=== PATIENT | female | born 1940 | race Caucasian/White ===

== ENCOUNTER → 2016-10-03 | Outpatient (CLI) | payer MEDICARE, BC ==
[2016-10-03 08:10] LABS: ALT 43 U/L (9-52); AST 30 U/L (14-36); Cholesterol 153 mg/dL (<200); HDL Cholesterol 57 mg/dL (40-60); Triglycerides 115 mg/dL (<150)
== END | disposition home or self-care (01) ==
LOC: LABWHC1 07:20
PROVIDERS: ATTEND Internal Medicine Interventional Cardiology
DX: E78.2 Mixed hyperlipidemia (principal)
CPT/HCPCS: 36415; 80061; 84450; 84460

== ENCOUNTER → 2017-03-23 | Outpatient (CLI) | payer MEDICARE, BC ==
[2017-03-23 14:40] LABS: ALT 53 U/L (9-52); AST 32 U/L (14-36); Alkaline Phosphatase 87 U/L (38-126); Anion Gap 8 mmol/L; Blood Urea Nitrogen 14 mg/dL (7-17); Calcium 9.2 mg/dL (8.4-10.2); Carbon Dioxide 30 mmol/L (22-30); Chloride 104 mmol/L (98-107); Cholesterol 145 mg/dL (<200); Glucose 103 mg/dL (74-99); HDL Cholesterol 63 mg/dL (40-60); Non-African American GFR(MDRD) 56 (>60 ml/min/1.73 sqM); Potassium 3.9 mmol/L (3.5-5.1); Sodium 142 mmol/L (137-145); Total Bilirubin 0.8 mg/dL (0.2-1.3); Total Protein 7.1 g/dL (6.3-8.2)
== END | disposition home or self-care (01) ==
LOC: LABWHC1 12:21
PROVIDERS: ATTEND Internal Medicine Interventional Cardiology
DX: E78.2 Mixed hyperlipidemia (principal); I10 Essential (primary) hypertension
CPT/HCPCS: 36415; 80053; 80061

== ENCOUNTER → 2017-06-30 | Outpatient (CLI) | payer MEDICARE, BC ==
--- NOTE | 2017-07-06 14:15 | MM ---
Reason for exam: screening (asymptomatic). Last mammogram was performed 1 year and 1 month ago. History: Patient is postmenopausal and is nulliparous. Family history of breast cancer in maternal cousin. Physical Findings: A clinical breast exam by your physician is recommended on an annual basis and results should be correlated with mammographic findings. MG 3D Screening Mammo W/Cad Bilateral CC and MLO view(s) were taken. Prior study comparison: June 14, 2016, bilateral MG screening mammo w CAD. June 12, 2015, bilateral MG screening mammo w CAD. The breast tissue is heterogeneously dense. This may lower the sensitivity of mammography. No significant changes when compared with prior studies. ASSESSMENT: Benign, BI-RAD 2 RECOMMENDATION: Routine screening mammogram of both breasts in 1 year.
== END | disposition home or self-care (01) ==
LOC: RADMAMWWP 14:40
PROVIDERS: ATTEND Internal Medicine
DX: Z12.31 Encounter for screening mammogram for malignant neoplasm of breast (principal)
CPT/HCPCS: 77063; G0202

== ENCOUNTER → 2017-09-22 | Outpatient (CLI) | payer MEDICARE, BC ==
[2017-09-22 10:37] LABS: ALT 52 U/L (9-52); AST 36 U/L (14-36); Cholesterol 149 mg/dL (<200); Creatine Kinase 76 U/L (30-135); HDL Cholesterol 57 mg/dL (40-60); LDL Cholesterol,Calculated 72 mg/dL (0-99); Triglycerides 100 mg/dL (<150)
== END | disposition home or self-care (01) ==
LOC: LABWHC1 09:53
PROVIDERS: ATTEND Internal Medicine Interventional Cardiology
DX: E78.2 Mixed hyperlipidemia (principal)
CPT/HCPCS: 36415; 80061; 82550; 84450; 84460

== ENCOUNTER → 2018-04-11 | Outpatient (CLI) | payer MEDICARE, BC ==
[2018-04-11 11:02] LABS: Albumin 3.8 g/dL (3.5-5.0); Calcium 9.4 mg/dL (8.4-10.2); Total Bilirubin 0.9 mg/dL (0.2-1.3)
== END ==
LOC: LABWHC1 09:21
PROVIDERS: ATTEND Internal Medicine Interventional Cardiology
DX: E78.2 Mixed hyperlipidemia (principal)
CPT/HCPCS: 36415; 80053; 80061

== ENCOUNTER → 2018-08-02 | Outpatient (CLI) | payer MEDICARE, BC ==
--- NOTE | 2018-08-05 12:49 | MM ---
Reason for exam: screening (asymptomatic). Last mammogram was performed 1 year and 1 month ago. History: Patient is postmenopausal and is nulliparous. Family history of breast cancer in maternal cousin. MG Screening Mammo w CAD Bilateral CC and MLO view(s) were taken. Prior study comparison: July 01, 2017, bilateral MG 3d screening mammo w/cad. June 14, 2016, bilateral MG screening mammo w CAD. The breast tissue is heterogeneously dense. This may lower the sensitivity of mammography. No discrete abnormality No significant changes when compared with prior studies. ASSESSMENT: Negative, BI-RAD 1 RECOMMENDATION: Routine screening mammogram of both breasts in 1 year.
== END | disposition home or self-care (01) ==
LOC: RADMAMWWP 14:24
PROVIDERS: ATTEND Internal Medicine
DX: Z12.31 Encounter for screening mammogram for malignant neoplasm of breast (principal); Z80.3 Family history of malignant neoplasm of breast
CPT/HCPCS: 77067

== ENCOUNTER → 2018-11-22 | Outpatient (CLI) | payer MEDICARE, BC ==
[2018-11-22 16:37] LABS: Albumin 4.1 g/dL (3.80-4.90); Albumin/Globulin Ratio 1.78 (1.60-3.17); Anion Gap 5.8 mmol/L (4.00-12.00); Carbon Dioxide 29.2 mmol/L (21.6-31.8); Globulin 2.3 g/dL (1.6-3.3); LDL Cholesterol,Calculated 62.4 mg/dL (0.0-131.0); Potassium 3.8 mmol/L (3.5-5.5); Total Bilirubin 1.1 mg/dL (0.3-1.2); Total Protein 6.4 g/dL (6.2-8.2); VLDL Calculation 19.6 mg/dL (5.00-40.00)
== END | disposition home or self-care (01) ==
LOC: LABWHC1 08:14
PROVIDERS: ATTEND Internal Medicine Interventional Cardiology
DX: E78.2 Mixed hyperlipidemia (principal)
CPT/HCPCS: 36415; 80053; 80061

== ENCOUNTER 2018-12-13 12:17 | Emergency (ER) | payer MEDICARE, BC ==
[2018-12-13 12:26] VITALS: BP 174/102; PULSE 98; RESP 18; TEMP 98
--- NOTE | 2018-12-13 13:43 | ED ---
General Adult HPI - General Chief complaint: Neck Pain/Injury Stated complaint: Shoulder and neck pain Time Seen by Provider: 12/13/18 12:35 Source: patient Mode of arrival: ambulatory Limitations: no limitations - History of Present Illness Initial comments: Patient is a 78-year-old female complaining of left upper trap pain times this morning and one episode of pain that radiated down her left arm. She states she woke up this morning with the pain, but no longer has the pain. States the episode of pain that went down her left arm was very brief and only lasted about 2-3 seconds. She was talking with one of her friends who states that she should come in to make sure it was not her heart. Patient denies history of heart disease. Admits to regular checkups with her PCP. Patient denies chest pain, shortness of breath, cough, nausea, vomiting, heartburn, radicular pain at this time. - Related Data Home Medications Medication Instructions Recorded Confirmed Aspirin 650 mg PO DAILY 01/23/15 01/27/15 Cetirizine HCl [Zyrtec] 10 mg PO DAILY 01/23/15 01/27/15 Losartan/Hydrochlorothiazide 1 each PO DAILY 01/23/15 01/27/15 [Losartan-Hctz 50-12.5 mg Tab] Naproxen Sodium [Aleve] 220 mg PO Q12HR PRN 01/23/15 01/27/15 Simvastatin [Zocor] 20 mg PO HS 01/23/15 01/27/15 Previous Rx's Medication Instructions Recorded Aspirin 325 mg PO BID 30 Days tab 01/28/15 Hydrocodone/Acetaminophen [[place] 1 - 2 each PO Q6HR PRN #60 tab 01/28/15 5-325] Allergies Allergy/AdvReac Type Severity Reaction Status Date / Time No Known Allergies Allergy Verified 12/13/18 12:26 Review of Systems ROS Statement: Those systems with pertinent positive or pertinent negative responses have been documented in the HPI. ROS Other: All systems not noted in ROS Statement are negative. Past Medical History Past Medical History: Hypertension, Myocardial Infarction (DC) Additional Past Medical History / Comment(s): previous EKG showed DC-not sure of date, using walker-injured left knee 01/22/15 Last Myocardial Infarction Date:: unknown History of Any Multi-Drug Resistant Organisms: None Reported Past Surgical History: Orthopedic Surgery Additional Past Surgical History / Comment(s): ORIF left ankle, D&C Past Anesthesia/Blood Transfusion Reactions: No Reported Reaction Past Psychological History: No Psychological Hx Reported Smoking Status: Never smoker Past Alcohol Use History: Occasional Past Drug Use History: None Reported - Past Family History Mother Family Medical History: No Reported History General Exam - General Exam Comments Initial Comments: GENERAL: Well-appearing, well-nourished and in no acute distress. HEAD: Atraumatic, normocephalic. EYES: Pupils equal round and reactive to light, extraocular movements intact, sclera anicteric, conjunctiva are normal. ENT: TMs normal, nares patent, oropharynx clear without exudates. Moist mucous membranes. NECK: Normal range of motion, supple without lymphadenopathy or JVD. LUNGS: Breath sounds clear to auscultation bilaterally and equal. No wheezes rales or rhonchi. HEART: Regular rate and rhythm without murmurs, rubs or gallops. ABDOMEN: Soft, nontender, normoactive bowel sounds. No guarding, no rebound. No masses appreciated. : Deferred EXTREMITIES: Normal range of motion, no pitting or edema. No clubbing or cyanosis. Pain with palpation over the left upper trap with muscle spasm present. NEUROLOGICAL: Cranial nerves II through XII grossly intact. Normal speech, normal gait. PSYCH: Normal mood, normal affect. SKIN: Warm, Dry, normal turgor, no rashes or lesions noted. Limitations: no limitations Course Vital Signs 12/13/18 12:21 Temperature 98.0 F Pulse Rate 98 Respiratory 18 Rate Blood Pressure 174/102 O2 Sat by Pulse 99 Oximetry EKG Findings - EKG Comments: EKG Findings:: Normal sinus rhythm, 82 ventricular rate, IN interval 200, QTC 450. Medical Decision Making - Medical Decision Making Patient is a 78-year-old female complaining of left upper trap pain times this morning and one brief episode of pain down the left arm. States she spoke with one of her friends about her symptoms and urged her to come in to make sure it was not her heart. She denies having any symptoms at this time. Patient denies any associated chest pain, vomiting, nausea, shortness of breath. EKG reveals nonspecific T-wave inversions in leads 1 and 2, otherwise normal EKG and similar to one in 2015. Case discussed with Dr. renteria. Patient educated on upper trapezius spasms and cervical radiculopathy. Patient discharged home. Disposition Clinical Impression: Cervical radiculopathy, Strain of neck muscle Disposition: HOME SELF-CARE Condition: Stable Instructions (If sedation given, give patient instructions): Cervical Strain (ED), Cervical Radiculopathy (ED) Additional Instructions: Please return to the Emergency Department if symptoms worsen or any other concerns. Use heat and massage to the area. Is patient prescribed a controlled substance at d/c from ED?: No Referrals: Donovan Castro MD [Primary Care Provider] - 1-2 days
== END 2018-12-13 13:45 | disposition home or self-care (01) ==
LOC: EC 12:17
DX: S16.1XXA Strain of muscle, fascia and tendon at neck level, initial encounter (principal); M54.12 Radiculopathy, cervical region; R94.31 Abnormal electrocardiogram [ECG] [EKG]; I10 Essential (primary) hypertension; I25.2 Old myocardial infarction; Z79.82 Long term (current) use of aspirin; Z79.899 Other long term (current) drug therapy
CPT/HCPCS: 93005; 99283

== ENCOUNTER → 2019-05-27 | Outpatient (CLI) | payer MEDICARE, BC ==
[2019-05-27 18:54] LABS: Chol/HDL Ratio 3.2
== END | disposition home or self-care (01) ==
LOC: LABWHC1 13:19
PROVIDERS: ATTEND Internal Medicine Interventional Cardiology
DX: E78.2 Mixed hyperlipidemia (principal)
CPT/HCPCS: 36415; 80061; 84450; 84460

== ENCOUNTER → 2019-08-22 | Outpatient (CLI) | payer MEDICARE, BC ==
--- NOTE | 2019-08-26 08:59 | MM ---
Reason for exam: screening (asymptomatic). Last mammogram was performed 1 year and 1 month ago. History: Patient is postmenopausal and is nulliparous. Family history of breast cancer in maternal cousin. Physical Findings: A clinical breast exam by your physician is recommended on an annual basis and results should be correlated with mammographic findings. MG Screening Mammo w CAD Bilateral CC and MLO view(s) were taken. Prior study comparison: August 02, 2018, bilateral MG screening mammo w CAD. July 01, 2017, bilateral MG 3d screening mammo w/cad. The breast tissue is heterogeneously dense. This may lower the sensitivity of mammography. No significant changes when compared with prior studies. ASSESSMENT: Benign, BI-RAD 2 RECOMMENDATION: Routine screening mammogram of both breasts in 1 year.
== END | disposition home or self-care (01) ==
LOC: RADMAMWWP 13:09
PROVIDERS: ATTEND Internal Medicine
DX: Z12.31 Encounter for screening mammogram for malignant neoplasm of breast (principal)
CPT/HCPCS: 77067

== ENCOUNTER → 2020-01-07 | Outpatient (CLI) | payer MEDICARE, BC ==
[2020-01-07 18:35] LABS: African American GFR (CKD) 61.2 (60.0-200.0); Albumin 4.1 g/dL (3.80-4.90); Albumin/Globulin Ratio 1.58 (1.60-3.17); Anion Gap 9.5 mmol/L (4.00-12.00); Calcium 8.9 mg/dL (8.7-10.3); Carbon Dioxide 26.5 mmol/L (21.6-31.8); Chol/HDL Ratio 2.65; Globulin 2.6 g/dL (1.6-3.3); LDL Cholesterol,Calculated 63.6 mg/dL (0.0-131.0); Non-African American GFR(CKD) 52.8 (60.0-200.0); Potassium 3.4 mmol/L (3.5-5.5); Total Bilirubin 0.8 mg/dL (0.3-1.2); Total Protein 6.7 g/dL (6.2-8.2); VLDL Calculation 15.4 mg/dL (5.00-40.00)
== END | disposition home or self-care (01) ==
LOC: LABWHC1 08:31
PROVIDERS: ATTEND Internal Medicine Interventional Cardiology
DX: E78.2 Mixed hyperlipidemia (principal)
CPT/HCPCS: 36415; 80053; 80061

== ENCOUNTER → 2020-07-20 | Outpatient (CLI) | payer MEDICARE, BC ==
[2020-07-20 15:44] LABS: African American GFR (CKD) 61.2 (60.0-200.0); Albumin 4.3 g/dL (3.80-4.90); Albumin/Globulin Ratio 1.65 (1.60-3.17); Anion Gap 7.7 mmol/L (4.00-12.00); Calcium 9.4 mg/dL (8.7-10.3); Carbon Dioxide 31.3 mmol/L (21.6-31.8); Chol/HDL Ratio 2.91; Globulin 2.6 g/dL (1.6-3.3); LDL Cholesterol,Calculated 70.2 mg/dL (0.0-131.0); Non-African American GFR(CKD) 52.8 (60.0-200.0); Potassium 3.9 mmol/L (3.5-5.5); Total Bilirubin 0.8 mg/dL (0.2-1.2); Total Protein 6.9 g/dL (6.2-8.2); VLDL Calculation 19.8 mg/dL (5.00-40.00)
== END | disposition home or self-care (01) ==
LOC: LABWHC1 09:58
PROVIDERS: ATTEND Internal Medicine Interventional Cardiology
DX: E78.2 Mixed hyperlipidemia (principal)
CPT/HCPCS: 36415; 80053; 80061

== ENCOUNTER → 2021-01-26 | Outpatient (CLI) | payer MEDICARE, BC ==
[2021-01-26 19:47] LABS: Albumin 4.2 g/dL (3.80-4.90); Albumin/Globulin Ratio 1.62 (1.60-3.17); Anion Gap 6.3 mmol/L (4.00-12.00); BUN/Creat Ratio 17.78 Ratio (12.00-20.00); Calcium 9.4 mg/dL (8.7-10.3); Carbon Dioxide 26.7 mmol/L (21.6-31.8); Chol/HDL Ratio 3.07; Globulin 2.6 g/dL (1.6-3.3); Non-African American GFR(CKD) 59.5 (60.0-200.0); Potassium 4.1 mmol/L (3.5-5.5); Total Protein 6.8 g/dL (6.2-8.2)
== END | disposition home or self-care (01) ==
LOC: LABWHC1 08:22
PROVIDERS: ATTEND Internal Medicine Interventional Cardiology
DX: E78.2 Mixed hyperlipidemia (principal)
CPT/HCPCS: 36415; 80053; 80061

== ENCOUNTER → 2021-06-15 | Outpatient (CLI) | payer MEDICARE, BC ==
[2021-06-15 10:58] LABS: Basophils # (A) 0.06 X 10*3/uL (0.00-0.10); Basophils % (A) 1.1 %; Eosinophils # (A) 0.23 X 10*3/uL (0.04-0.35); Eosinophils % (A) 4.2 %; HGB 15.4 g/dL (12.0-15.0); Lymphocytes # (A) 2.05 X 10*3/uL (0.90-5.00); Lymphocytes % (A) 37.5 %; MCH 28.7 pg (27.0-32.0); MCHC 32.1 g/dL (32.0-37.0); MCV 89.4 fL (80.0-97.0); Mean Platelet Volume 10.6 fL (9.5-12.2); Monocytes # (A) 0.58 X 10*3/uL (0.20-1.00); Monocytes % (A) 10.6 %; Neutrophils # (A) 2.54 X 10*3/uL (1.80-7.70); Neutrophils % (A) 46.4 %; Platelet Count 217 X 10*3/uL (140-440); RBC 5.37 X 10*6/uL (4.10-5.20); RDW 13.1 % (11.5-14.5); WBC 5.47 X 10*3/uL (4.50-10.00)
[2021-06-15 12:21] LABS: ALT 42 U/L (8-44); AST 31 U/L (13-35); African American GFR (CKD) 60.8 (60.0-200.0); Albumin 4.2 g/dL (3.8-4.9); Alkaline Phosphatase 85 U/L (41-126); Blood Urea Nitrogen 14.3 mg/dL (9.0-27.0); Calcium 9.2 mg/dL (8.7-10.3); Carbon Dioxide 25.7 mmol/L (20.0-27.5); Chloride 106 mmol/L (96-109); Chol/HDL Ratio 2.75 Ratio; Globulin 2.8 g/dL (1.6-3.3); Glucose 119 mg/dL (70-110); LDL Cholesterol,Calculated 62.7 mg/dL (0.0-131.0); Non-African American GFR(CKD) 52.4 (60.0-200.0); Potassium 3.8 mmol/L (3.5-5.5); Sodium 144 mmol/L (135-145)
== END | disposition home or self-care (01) ==
LOC: LABWHC1 07:13
PROVIDERS: ATTEND Internal Medicine Geriatric Medicine
DX: I25.10 Atherosclerotic heart disease of native coronary artery without angina pectoris (principal); E78.2 Mixed hyperlipidemia; R73.9 Hyperglycemia, unspecified; I49.9 Cardiac arrhythmia, unspecified
CPT/HCPCS: 36415; 80053; 80061; 83036; 84443; 85025

== ENCOUNTER → 2022-02-11 | Outpatient (CLI) | payer MEDICARE, BC ==
[2022-02-11 14:17] LABS: ALT 35 U/L (8-44); AST 33 U/L (13-35); African American GFR (CKD) 69.7 (60.0-200.0); Albumin/Globulin Ratio 1.31 (1.60-3.17); Alkaline Phosphatase 81 U/L (41-126); BUN/Creat Ratio 17.68 Ratio (12.00-20.00); Blood Urea Nitrogen 15.7 mg/dL (9.0-27.0); Calcium 9.1 mg/dL (8.7-10.3); Carbon Dioxide 26.4 mmol/L (20.0-27.5); Chloride 104 mmol/L (96-109); Chol/HDL Ratio 2.69 Ratio; Glucose 111 mg/dL (70-110); LDL Cholesterol,Calculated 59.7 mg/dL (0.0-131.0); Non-African American GFR(CKD) 60.1 (60.0-200.0); Potassium 3.4 mmol/L (3.5-5.5); Sodium 142 mmol/L (135-145); VLDL Calculation 16.32 mg/dL (5.00-40.00)
== END | disposition home or self-care (01) ==
LOC: LABWHC1 07:21
PROVIDERS: ATTEND Internal Medicine Interventional Cardiology
DX: E78.2 Mixed hyperlipidemia (principal)
CPT/HCPCS: 36415; 80053; 80061

== ENCOUNTER → 2022-10-28 | Outpatient (CLI) | payer MEDICARE, BC ==
[2022-10-28 15:34] LABS: ALT 27 U/L (8-44); AST 28 U/L (13-35); African American GFR (CKD) 59.9 (60.0-200.0); Albumin 4.3 g/dL (3.8-4.9); Albumin/Globulin Ratio 1.39 (1.60-3.17); Alkaline Phosphatase 82 U/L (41-126); Blood Urea Nitrogen 17.3 mg/dL (9.0-27.0); Calcium 9.6 mg/dL (8.7-10.3); Carbon Dioxide 28.6 mmol/L (20.0-27.5); Chloride 105 mmol/L (96-109); Chol/HDL Ratio 3.84 Ratio; Globulin 3.1 g/dL (1.6-3.3); Glucose 114 mg/dL (70-110); LDL Cholesterol,Calculated 115.7 mg/dL (0.0-131.0); Non-African American GFR(CKD) 51.7 (60.0-200.0); Potassium 3.2 mmol/L (3.5-5.5); Sodium 145 mmol/L (135-145); Total Protein 7.4 g/dL (6.2-8.2); VLDL Calculation 19.56 mg/dL (5.00-40.00)
== END | disposition home or self-care (01) ==
LOC: LABWHC1 08:12
PROVIDERS: ATTEND Internal Medicine Interventional Cardiology
DX: E78.2 Mixed hyperlipidemia (principal)
CPT/HCPCS: 36415; 80053; 80061

== ENCOUNTER → 2022-12-12 | Outpatient (CLI) | payer MEDICARE, BC ==
--- NOTE | 2022-12-13 06:49 | MR ---
EXAMINATION TYPE: MR brain wo/w con DATE OF EXAM: 12/12/2022 COMPARISON: NONE HISTORY: Memory issues, mild forgetfulness TECHNIQUE: Multiplanar, multisequence images of the brain and brainstem is performed without and with IV contras t, utilizing 7 mL intravenous Gadavist . FINDINGS: Diffusion weighted images demonstrate no evidence of a recent infarct or other diffusion ab normality. There is mild to moderate ventricular and sulcal prominence. There are scattered foci of T 2 hyperintensity seen throughout the white matter bilaterally. Lesion somewhat confluent in appearanc e at the periventricular levels. Midline structures demonstrate normal morphology. The craniocervical junction appears within normal limits. Post contrast images demonstrate no abnormal enhancement or enhancing masses. The dural veno us sinuses appear patent. The visualized sinuses are clear and the globes are intact. IMPRESSION: [id number] diffuse cerebral atrophy and chronic small vessel ischemic change. No ab normal enhancement noted.
== END | disposition home or self-care (01) ==
LOC: RADMRIMAIN 14:21
PROVIDERS: ATTEND Internal Medicine Geriatric Medicine
DX: I67.82 Cerebral ischemia (principal); G31.9 Degenerative disease of nervous system, unspecified; R41.82 Altered mental status, unspecified
CPT/HCPCS: 70553; A9585

== ENCOUNTER 2023-10-04 09:36 | Emergency (ER) | payer MEDICARE, BC ==
[2023-10-04 10:19] VITALS: RESP 18
[2023-10-04 10:36] LABS: Basophils % (A) 1 %; Eosinophils # (A) 0.1 k/uL (0-0.7); Eosinophils % (A) 2 %; HCT 47.9 % (34.0-46.0); HGB 15.5 gm/dL (11.4-16.0); Lymphocytes # (A) 1.6 k/uL (1.0-4.8); Lymphocytes % (A) 23 %; MCH 29.4 pg (25.0-35.0); MCHC 32.4 g/dL (31.0-37.0); MCV 90.5 fL (80.0-100.0); Mean Platelet Volume 8.2; Monocytes # (A) 0.6 k/uL (0-1.0); Monocytes % (A) 8 %; Neutrophils # (A) 4.6 k/uL (1.3-7.7); Neutrophils % (A) 64 %; Platelet Count 218 k/uL (150-450); RBC 5.29 m/uL (3.80-5.40); RDW 13.5 % (11.5-15.5); WBC 7.2 k/uL (3.8-10.6)
[2023-10-04 10:43] LABS: Appearance,Urine Clear (Clear); Bacteria,Urine Occasional /hpf; Bilirubin,Urine Negative (Negative); Blood,Urine Trace (Negative); Color,Urine Yellow; Glucose,Urine (UA) Negative (Negative); Hyaline Casts,Urine 4 /lpf (0-2); INR 0.9 (<1.2); Ketones,Urine Negative (Negative); Leukocyte Esterase,Urine Trace (Negative); Mucus,Urine Moderate /hpf; Nitrite,Urine Negative (Negative); PH, Urine 5.5 (5.0-8.0); Partial Thromboplastin Time 23.8 sec (22.0-30.0); Protein,Urine Trace (Negative); Prothrombin Time 10.4 sec (10.0-12.5); RBC,Urine 3 /hpf (0-5); Specific Gravity,Urine 1.027 (1.001-1.035); Squamous Epithelial Cell,Urine 2 /hpf (0-4); Urobilinogen,Urine <2.0 mg/dL (<2.0); WBC,Urine 3 /hpf (0-5)
[2023-10-04] MEDS: SODIUM CHLORIDE 0.9% 1,000 ML IV ONE (10:45)
[2023-10-04 10:54] LABS: ALT 24 U/L (4-34); AST 27 U/L (14-36); African American GFR (CKD) 66 (>60 ml/min/1.73 sqM); Alcohol <10 mg/dL; Alkaline Phosphatase 88 U/L (38-126); Anion Gap 8 mmol/L; Blood Urea Nitrogen 16 mg/dL (7-17); Calcium 9.2 mg/dL (8.4-10.2); Carbon Dioxide 26 mmol/L (22-30); Chloride 109 mmol/L (98-107); Glucose 96 mg/dL (74-99); Non-African American GFR(CKD) 58 (>60 ml/min/1.73 sqM); Potassium 3.7 mmol/L (3.5-5.1); Sodium 143 mmol/L (137-145); Total Protein 7.2 g/dL (6.3-8.2)
[2023-10-04 10:56] VITALS: PULSE 98
--- NOTE | 2023-10-04 11:01 | CT ---
EXAMINATION TYPE: CT brain wo con CT DLP: 1095.4 mGycm, Automated exposure control for dose reduction was used. DATE OF EXAM: 10/04/2023 10:36 AM COMPARISON: . CLINICAL INDICATION:Female, 82 years old with history of Altered mental status, confusion TECHNIQUE: Brain: Axial CT images of the brain were obtained with coronal and sagittal reformats created and rev iewed. Contrast used: None. Oral contrast used: None. FINDINGS: Brain: Extra-axial spaces: No abnormal extra-axial fluid collections. Ventricular system: Ventricles and sulci are prominent consistent with age-related involution. Cerebral parenchyma: No acute intraparenchymal hemorrhage or mass effect. The dempsey-white junction is well differentiated. Scattered hypoattenuating areas are seen within the white matter. Cerebellum: Unremarkable. Mass effect: No evidence of midline shift. Intracranial vasculature: unremarkable Soft tissues: Normal. Calvarium/osseous structures: No depressed skull fracture. Paranasal sinuses and mastoid air cells: Mild scattered paranasal sinus disease. Visualized orbits: Orbital contents are intact. IMPRESSION: No acute intracranial process. 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
--- NOTE | 2023-10-04 11:11 | XR ---
EXAMINATION TYPE: XR chest 2V DATE OF EXAM: 10/04/2023 COMPARISON: None INDICATION: Altered mental status TECHNIQUE: Frontal and lateral views of the chest are obtained. FINDINGS: The heart size is normal. The pulmonary vasculature is normal. The lungs are clear. The lateral projection there is flattening of the diaphragms. Correlate for PHOTOVOLTAIC FABRICATION TECHNICIAN D. IMPRESSION: 1. No acute pulmonary process. 2. Consider COPD.
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
[2023-10-04 12:16] LABS: Amphetamine Screen,Urine Not Detected (NotDetected); Barbiturate Screen,Urine Not Detected (NotDetected); Benzodiazepines Screen,Urine Not Detected (NotDetected); Cocaine Screen,Urine Not Detected (NotDetected); Methadone Screen, Urine Not Detected (NotDetected); Opiate Screen,Urine Not Detected (NotDetected); Oxycodone Screen, Urine Not Detected (NotDetected); Phencyclidine Screen,Urine Not Detected (NotDetected); Tricyclic Antidepressant,Urine Not Detected (NotDetected); Urn Cannabinoid Scrn Not Detected (NotDetected)
[2023-10-04 12:48] VITALS: BP 127/88; TEMP 98.1
== END 2023-10-04 12:31 | disposition home or self-care (01) ==
LOC: EC 09:36
DX: G30.9 Alzheimer's disease, unspecified (principal); F02.80 Dementia in other diseases classified elsewhere, unspecified severity, without behavioral disturbance, psychotic disturbance, mood disturbance, and anxiety; Z11.52 Encounter for screening for COVID-19
CPT/HCPCS: 36415; 93005; 80053; 82140; 83605; 85025; 85610; 85730; 81001; 80306; 87636; 71046; 70450; 99285; 96360; G0480; 80320